=== PATIENT | male | born 1960 | race Caucasian/White ===

== ENCOUNTER 2017-02-07 17:48 | Emergency (ER) | payer OTHER | END 2017-02-07 17:49 | disposition home or self-care (01) | LOC: EDSEX 17:48 → D.ER 17:48 | DX: S02.40FA Zygomatic fracture, left side, initial encounter for closed fracture (principal); Y04.2XXA Assault by strike against or bumped into by another person, initial encounter; Y93.89 Activity, other specified; Y92.89 Other specified places as the place of occurrence of the external cause; F17.200 Nicotine dependence, unspecified, uncomplicated ==